=== PATIENT | female | born 1960 | race Caucasian/White ===

== ENCOUNTER 2020-12-27 08:27 | Day surgery (SDC) | payer BC ==
[2020-12-25 10:58] VITALS: BMI 22.7
[~2020-12-27 08:27] MED LIST: LACTATED RINGERS 1,000 ML IV SCH
[2020-12-27 08:52] VITALS: TEMP 97.8
[2020-12-27] MEDS ORDERED: LACTATED RINGERS 1,000 ML IV ONE (08:52)
[2020-12-27 09:00] LABS: Glucose,Whole Blood 87 mg/dL (75-99)
[2020-12-27] MEDS ORDERED: fentaNYL (PF) 50 MCG/ML 2 ML AMP IVP ONE (09:04)
[2020-12-27] MEDS ORDERED: PROPOFOL 10 MG/ML 20 ML VIAL IV ONE (09:37)
--- NOTE | 2020-12-27 10:04 | P.PCN ---
Date of Procedure: 12/27/20 Procedure(s) Performed: Brief history: Patient is a pleasant 60-year-old white female scheduled for an elective upper endoscopy as well as colonoscopy as a part of evaluation of the epigastric pain and long-standing history of Crohn's disease. His was diagnosed with rectovaginal fistula in 2019 and subsequently had ileostomy for 9 minutes and traversed 10 months later. Presently having intermittent lower abdominal pain, abdominal bloating and diarrhea. Procedure performed: Esophagogastroduodenoscopy biopsy Colonoscopy with biopsy Preoperative diagnosis: Epigastric pain History of Crohn's disease diagnosed at age 20. Anesthesia: [facility] [place] Procedure: After informed consent was obtained from the patient was brought into the endoscopy unit and IV sedation was administered by anesthesia under continuous monitoring. Initially upper endoscopy was done. The Olympus GF 160 video endoscope was inserted inserted into the mouth and esophagus intubated without any difficulty and was gradually advanced into the stomach and duodenum and carefully examined. The bulb and second part of the duodenum appeared normal. Abscesses were done from the duodenum to rule out celiac disease. The scope was then withdrawn into the stomach adequately insufflated with air and upon careful examination the antrum had gastritis and biopsies were done from this area. The body, cardia and fundus appeared normal. The scope was then withdrawn into the esophagus. The GE junction was located at 40 cm to the incisors. It appeared regular with no erythema erosions or ulcerations. Rest of the esophagus appeared normal. Patient tolerated the procedure well. At this time the patient continued to remain sedation. Initial digital rectal examination was normal. Olympus CF 160 video colonoscope was then inserted into the rectum and gradually advanced to the cecum without any difficulty. Careful examination was performed as the scope was gradually being withdrawn. The prep was excellent. Terminal ileum was intubated and 20 cm visualized and appeared normal. Biopsies were done from this area. The cecum, ascending colon, transverse colon, descending colon, sigmoid colon appeared normal. Rectum there were patchy areas of erythema noted but no erosions or ulcerations seen and biopsies were done from this area. Retroflexion was performed in the rectum and no lesions were noted. Patient tolerated the procedure well. Impression: 1. Upper endoscopy revealed mild antral gastritis but no evidence of esophagitis or peptic ulcer disease. 2. Colonoscopy revealed mild patchy areas of erythema noted in the rectum but the rest of the colon and terminal ileum appeared normal Recommendations: Findings of this examination were discussed with the patient as well as a family. She was advised to follow with the biopsy results. She'll be seen in office in 2-3 weeks.
[2020-12-27 10:52] VITALS: BP 182/72; PULSE 60; RESP 20
== END 2020-12-27 10:49 | disposition home or self-care (01) ==
LOC: ORWHC2ENDO 08:27
PROVIDERS: ATTEND Internal Medicine Gastroenterology
DX: K50.90 Crohn's disease, unspecified, without complications (principal); K29.50 Unspecified chronic gastritis without bleeding; I10 Essential (primary) hypertension; Z86.79 Personal history of other diseases of the circulatory system
CPT/HCPCS: 45380; 43239; 88305; J3010; J2704

== ENCOUNTER → 2021-04-21 | Day surgery (SDC) | payer BC ==
[2021-04-21 13:40] VITALS: BP 178/84; PULSE 98; RESP 18
[2021-04-21] MEDS: GLUCAGON 1 MG/ML VIAL IM STA (15:21)
--- NOTE | 2021-04-25 10:16 | MR ---
EXAMINATION TYPE: MR Enterography DATE OF EXAM: 04/21/2021 COMPARISON: None available HISTORY: Evaluate for Crohn's disease. CONTRAST: Standard multiplanar, multisequence imaging of the abdomen is performed without and with IV contrast, patient is injected with 6.5 mL of intravenous Gadavist. 1350 mL of Volumen and Water was given as per enterography protocol. FINDINGS: Adequate quality of the study. Unremarkable stomach and duodenum. Short scattered segments of small b owel nondistention, likely due to peristalsis. Unremarkable small bowel including the ileocecal junct ion with no evidence of bowel dilatation, wall thickening, abnormal enhancement or strictures. No sig ns of Crohn's disease by this MRI. Mild wall thickening of the rectum, nonspecific. Fecal loading of the colon. Grossly unremarkable remainder of the colon. Unremarkable visualized portion of the liver, gallbladder, spleen, pancreas, adrenals and kidneys. [place] spected arterial atherosclerotic calcifications. Preserved signal void pattern of major abdominal and pelvic arteries. No suspicious lymphadenopathy or sizable ascites. Degenerative changes of the lumba r spine. Focal hyperenhancement along the right femoral greater trochanter which could be related to enthesitis. IMPRESSION: Unremarkable small bowel with no evidence of Crohn's disease by this MRI. Incidental findings as desc ribed above.
== END | disposition home or self-care (01) ==
LOC: RADMRIMAIN 12:33
PROVIDERS: ATTEND Internal Medicine Gastroenterology
DX: K63.89 Other specified diseases of intestine (principal)
CPT/HCPCS: 96372; 72197; 74183; J1610; A9585

== ENCOUNTER → 2021-08-12 | Outpatient (CLI) | payer BC | END | disposition home or self-care (01) | LOC: LABWHC1 10:22 | PROVIDERS: ATTEND Otolaryngology | DX: J30.89 Other allergic rhinitis (principal) | CPT/HCPCS: 36415 ==